=== PATIENT | male | born 1935 | race Caucasian/White ===

== ENCOUNTER 2021-06-21 18:16 | Inpatient (IN) | payer MEDICARE, OTHER ==
[~2021-06-21] VITALS: Ht 175.3 cm; Wt 75.0 kg
[~2021-06-21 18:16] MED LIST: ASPI-83 PO; BETA1TAB12 PO; CLOP75TA34 PO; FLUO20CA39 PO; HYDR12.522 PO; OLME20TA15 PO; OMEG1CAP13 PO; SIMV-42 PO; THY60T PO; VITA400T8 PO
[2021-06-21 19:29] LABS: BASOPHILS # (AUTO) 0.1 X10'3 (0-0.2); BASOPHILS % (AUTO) 0.7 % (0-1); EOSINOPHILS # (AUTO) 0.4 X10'3 (0-0.9); HEMATOCRIT 38.3 % (42.0-52.0); HEMOGLOBIN 12.7 g/dl (14.0-17.9); LYMPHOCYTES # (AUTO) 1.4 X10'3 (1.1-4.8); LYMPHOCYTES % (AUTO) 13.6 % (21-51); MEAN CORPUSCULAR HGB CONC 33.3 g/dL (33.0-36.5); MEAN CORPUSCULAR VOLUME 90.1 FL (78-98); MEAN PLATELET VOLUME 7.9 FL (7.4-10.4); MONOCYTES # (AUTO) 0.9 X10'3 (0-0.9); MONOCYTES % (AUTO) 8.7 % (2-12); NEUTROPHILS # (AUTO) 7.3 X10'3 (1.8-7.7); PLATELET COUNT 223 X10'3 (140-440); RED BLOOD COUNT 4.25 X10'6 (4.70-6.10); RED CELL DISTRIBUTION WIDTH 14.3 % (11.5-14.5)
[2021-06-21 19:40] LABS: ALANINE AMINOTRANSFERASE 23 U/L (12-78); ALBUMIN 3.6 G/DL (3.4-5.0); ALKALINE PHOSPHATASE 52 IU/L (46-116); ANION GAP 10 (8-16); ASPARTATE AMINO TRANSFERASE 22 U/L (10-37); BILIRUBIN,TOTAL 0.2 MG/DL (0.1-1.0); BLOOD UREA NITROGEN 20 MG/DL (7-18); BUN/CREATININE RATIO 23.5 (5.4-32.0); CALCIUM 9.8 MG/DL (8.5-10.1); CHLORIDE 104 MMOL/L (99-107); CREATININE 0.85 MG/DL (0.60-1.10); GLUCOSE 125 MG/DL (70-104); SODIUM 140 MMOL/L (135-145); TOTAL CARBON DIOXIDE 25.7 MMOL/L (24-32); TOTAL PROTEIN 7.1 G/DL (6.4-8.2); eGFR 85 ML/MIN
[2021-06-21] MEDS ORDERED: morphine 2 MG/ML inj. syringe IV PRN (21:45)
[2021-06-21] MEDS ORDERED: potassium Cl 20 mEq SR tablet PO PRN ×2 (21:45)
[2021-06-21] MEDS ORDERED: metoprolol tartrate 1mg/ml inj IV PRN (21:45)
[2021-06-21] MEDS ORDERED: HYDROcodone/acetaminophen 5mg/325mg tablet PO PRN (21:45)
[2021-06-21] MEDS ORDERED: magnesium Cl slow-release 64mg tablet PO PRN (21:45)
[2021-06-21] MEDS ORDERED: potassium CL 10mEq/100ml bag 100 ML IV PRN (21:45)
[2021-06-21] MEDS ORDERED: magnesium 2GM in 50ml NS 50 ML IV PRN (21:45)
[2021-06-21] MEDS ORDERED: aminophylline 250mg/10ml inj. IV PRN (21:45)
[2021-06-21] MEDS ORDERED: regadenoson 0.4mg/5ml syringe IV PRN (21:45)
[2021-06-21] MEDS ORDERED: magnesium 4gm in 100ml NS 100 ML IV PRN (21:45)
[2021-06-21] MEDS ORDERED: acetaminophen 325mg tablet PO PRN ×2 (21:45)
[2021-06-21] MEDS ORDERED: ondansetron/PF 4mg/2ml inj IV PRN (21:45)
[2021-06-21] MEDS ORDERED: DONE10TA44 PO (21:59)
[2021-06-21] MEDS ORDERED: AMLO5TAB16 PO (21:59)
[2021-06-21] MEDS ORDERED: METO-395 PO (21:59)
[2021-06-21] MEDS ORDERED: METF-1203 PO (21:59)
[2021-06-21] MEDS ORDERED: LEVO50TA8 PO (21:59)
[2021-06-21] MEDS ORDERED: PANT20TA18 PO (21:59)
[2021-06-21] MEDS ORDERED: ROSU40TA22 PO (21:59)
[2021-06-22] VITALS (12 sets, daily range): BP systolic 128–188; BP diastolic 54–84
[2021-06-22] MEDS: normal saline 1000ml 1,000 ML IV SCH ×3 (01:04→18:46)
[2021-06-22 01:49] LABS: BASOPHILS # (AUTO) 0.1 X10'3 (0-0.2); BASOPHILS % (AUTO) 1.1 % (0-1); EOSINOPHILS # (AUTO) 0.4 X10'3 (0-0.9); EOSINOPHILS % (AUTO) 4.7 % (0-6); HEMATOCRIT 35.2 % (42.0-52.0); HEMOGLOBIN 11.7 g/dl (14.0-17.9); LYMPHOCYTES # (AUTO) 1.7 X10'3 (1.1-4.8); LYMPHOCYTES % (AUTO) 19.6 % (21-51); MEAN CORPUSCULAR HEMOGLOBIN 29.5 PG (27.0-31.0); MEAN CORPUSCULAR HGB CONC 33.3 g/dL (33.0-36.5); MEAN CORPUSCULAR VOLUME 88.6 FL (78-98); MEAN PLATELET VOLUME 7.6 FL (7.4-10.4); MONOCYTES # (AUTO) 0.7 X10'3 (0-0.9); MONOCYTES % (AUTO) 8.5 % (2-12); NEUTROPHILS # (AUTO) 5.8 X10'3 (1.8-7.7); NEUTROPHILS % (AUTO) 66.1 % (42-75); PLATELET COUNT 215 X10'3 (140-440); RED BLOOD COUNT 3.97 X10'6 (4.70-6.10); RED CELL DISTRIBUTION WIDTH 14.3 % (11.5-14.5); WHITE BLOOD COUNT 8.8 X10'3 (4.5-11.0)
[2021-06-22 02:14] LABS: ALANINE AMINOTRANSFERASE 24 U/L (12-78); ALBUMIN 3.3 G/DL (3.4-5.0); ALBUMIN/GLOBULIN RATIO 1.3 (1.1-1.5); ALKALINE PHOSPHATASE 48 IU/L (46-116); ANION GAP 10 (8-16); ASPARTATE AMINO TRANSFERASE 19 U/L (10-37); BILIRUBIN,TOTAL 0.2 MG/DL (0.1-1.0); BLOOD UREA NITROGEN 19 MG/DL (7-18); BUN/CREATININE RATIO 25.7 (5.4-32.0); CALCIUM 9.4 MG/DL (8.5-10.1); CHLORIDE 106 MMOL/L (99-107); CHOL/HDL RATIO 2.1 (0.00-4.99); CHOLESTEROL 113 MG/DL (0-200); CREATININE 0.74 MG/DL (0.60-1.10); GLUCOSE 131 MG/DL (70-104); HDL CHOLESTEROL 54 MG/DL (35-60); LDL CHOLESTEROL 46 MG/DL (50-100); POTASSIUM 3.8 MMOL/L (3.5-5.1); SODIUM 141 MMOL/L (135-145); TOTAL CARBON DIOXIDE 25.2 MMOL/L (24-32); TOTAL PROTEIN 5.9 G/DL (6.4-8.2); TRIGLYCERIDES 73 MG/DL (20-135); eGFR > 90 ML/MIN
--- NOTE | 2021-06-22 02:30 | NUR ---
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 No other issues noted. Doctor notified, no new orders at this time, but stated to do a repeat EKG if noticed again.
[2021-06-22] MEDS: heparin, porcine 5000 units/ml vial SQ SCH ×2 (08:28→20:44)
[2021-06-22] MEDS: K and/or MAG REPLACEMENT MC SCH ×2 (08:29→19:41)
[2021-06-22] MEDS: nitroGLYCERIN 0.4mg SUBLingual tab SL PRN ×2 (08:54→11:43)
--- NOTE | 2021-06-22 08:54 | NUR ---
PT REPORTS ONSET OF CHEST PAIN AFTER COMPLETION OF ECHO. PAIN LOCATED LEFT CHEST, RADIATES DOWN TO ABD. DENIES NAUSEA/ NO DIAPHORESIS. 1 DOSE NITRO ADMINISTERED. PAIN 5/10
--- NOTE | 2021-06-22 09:09 | NUR ---
PT REPORTS 0/10 CP
--- NOTE | 2021-06-22 12:30 | NUR ---
PT ADMITTED TO [facility] RM[facility][id number], TRANSFERRING FROM ER TO [facility] VIA STRETCHER. 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 PT LEFT HEARING AID AT THE HOME.TELEMETRY-NSR 80. IVF NS@70CC/HR. SKIN WARM AND DRY, BILATERAL GROIN SKIN CUTS IN THE FOLDS-RED NONDRAINING NOTED. BP 165/102, PT ARRIVED TO NOW LEAVING TO [facility] 2ND PART. Addendum: 06/22/21 at 1855 by Dannielle Owens RN pt returned from [employer] BP 184/85, PRN medication Lopressor 10mg IV given as ordered. BP decreased to 126/65. will continue to monitor patient status.
[2021-06-22 14:23] LABS: HEMOGLOBIN A1C 8.1 % (4.5-6.2)
[2021-06-22] MEDS ORDERED: HYDROchlorothiazide 25mg tablet PO ONE (14:40)
[2021-06-22] MEDS ORDERED: heparin 10,000 units/1 ML INJ IV ONE (18:05)
[2021-06-22] MEDS ORDERED: heparin 25,000 UNIT/250ml bag 250 ML IV SCH (18:05)
[2021-06-22] MEDS ORDERED: heparin 10,000 units/1 ML INJ IV PRN (18:05)
[2021-06-22] MEDS ORDERED: dextrose 50%-water 50ml dispensing syringe IV PRN ×2 (18:25)
[2021-06-22] MEDS ORDERED: glucagon, human recombinant 1mg kit SUBCUT PRN (18:25)
[2021-06-22] MEDS ORDERED: DEXTROSE 15 GM of carb/4 tabs (each vial/BOTTLE has 4 tablets) PO PRN ×2 (18:25)
[2021-06-22] MEDS ORDERED: lisinopril 10 MG tablet PO ONE (18:25)
[2021-06-22] MEDS ORDERED: insulin Lispro (HumaLOG) vial - multi-dose SQ SCH (18:25)
[2021-06-22] MEDS ORDERED: MESSAGE TO PHARMACY PO ONE (18:25)
--- NOTE | 2021-06-22 19:15 | NUR ---
Patient in room MED 308. I have received report from OSMANI RN and had the opportunity to ask questions and assume patient care.
[2021-06-22] MEDS ORDERED: donepezil 5mg tablet PO SCH (21:00)
[2021-06-22] MEDS ORDERED: insulin glargine (Lantus) pen - multi-dose SQ SCH (21:00)
[2021-06-23 02:00] VITALS: BP 123/57
[2021-06-23 05:18] LABS: BASOPHILS % (AUTO) 0.5 % (0-1); EOSINOPHILS # (AUTO) 0.4 X10'3 (0-0.9); EOSINOPHILS % (AUTO) 4.6 % (0-6); HEMATOCRIT 40.8 % (42.0-52.0); LYMPHOCYTES # (AUTO) 1.5 X10'3 (1.1-4.8); LYMPHOCYTES % (AUTO) 17.7 % (21-51); MEAN CORPUSCULAR HEMOGLOBIN 30.6 PG (27.0-31.0); MEAN CORPUSCULAR HGB CONC 34.3 g/dL (33.0-36.5); MEAN CORPUSCULAR VOLUME 89.2 FL (78-98); MEAN PLATELET VOLUME 7.7 FL (7.4-10.4); MONOCYTES # (AUTO) 0.8 X10'3 (0-0.9); MONOCYTES % (AUTO) 9.4 % (2-12); NEUTROPHILS # (AUTO) 5.8 X10'3 (1.8-7.7); NEUTROPHILS % (AUTO) 67.8 % (42-75); PLATELET COUNT 222 X10'3 (140-440); RED BLOOD COUNT 4.57 X10'6 (4.70-6.10); RED CELL DISTRIBUTION WIDTH 14.4 % (11.5-14.5); WHITE BLOOD COUNT 8.5 X10'3 (4.5-11.0)
[2021-06-23 05:43] LABS: ALANINE AMINOTRANSFERASE 25 U/L (12-78); ALBUMIN 3.5 G/DL (3.4-5.0); ALBUMIN/GLOBULIN RATIO 1.1 (1.1-1.5); ALKALINE PHOSPHATASE 55 IU/L (46-116); ANION GAP 12 (8-16); ASPARTATE AMINO TRANSFERASE 23 U/L (10-37); BILIRUBIN,TOTAL 0.4 MG/DL (0.1-1.0); BLOOD UREA NITROGEN 16 MG/DL (7-18); BUN/CREATININE RATIO 19.8 (5.4-32.0); CALCIUM 10.1 MG/DL (8.5-10.1); CHLORIDE 104 MMOL/L (99-107); CREATININE 0.81 MG/DL (0.60-1.10); GLUCOSE 129 MG/DL (70-104); SODIUM 141 MMOL/L (135-145); TOTAL CARBON DIOXIDE 24.9 MMOL/L (24-32); TOTAL PROTEIN 6.6 G/DL (6.4-8.2); eGFR 90 ML/MIN
--- NOTE | 2021-06-23 06:17 | NUR ---
Problems reprioritized. Patient report given, questions answered & plan of care reviewed with VIMAL HORNER.
[2021-06-23] MEDS ORDERED: pantoprazole 40mg Tablet.DR PO SCH (07:30)
[2021-06-23] MEDS ORDERED: amLODIPine 5mg tablet PO SCH (08:00)
[2021-06-23] MEDS ORDERED: atorvastatin 20mg tablet PO SCH (08:00)
[2021-06-23] MEDS ORDERED: clopidogrel 75mg tablet PO SCH (08:00)
[2021-06-23] MEDS ORDERED: metoprolol succinate 25mg (24-HOUR) SR. Tablet PO SCH (08:00)
[2021-06-23] MEDS ORDERED: lisinopril 10 MG tablet PO SCH (08:00)
[2021-06-23] MEDS ORDERED: levoTHYROXINE 25mcg tablet PO SCH (08:00)
[2021-06-23] MEDS: K and/or MAG REPLACEMENT MC SCH (08:00)
[2021-06-23] MEDS: heparin, porcine 5000 units/ml vial SQ SCH (09:07)
[2021-06-23 09:10] VITALS: BP_SYST 123
[2021-06-23] MEDS ORDERED: NITR0.4T51 SL (09:44)
--- NOTE | 2021-06-23 10:51 | NUR ---
DM Consult: Pt admit DX systolic heart failure, unstable angina, HTN, hypothyroidism, and T2DM per DO note. Pt hx T2DM A1C 8.1% appropriate per ADA guidelines given age. PO 100% first heart healthy meal this admit placed on glycemic protocol w/ Lanstevie held last night per EMR. Will monitor for nutrition intervention needs this admit. Addendum: 06/23/21 at [address] Amended: Links added.
--- NOTE | 2021-06-23 13:05 | NUR ---
pt discharged per MD orders. Pt took all belongings and left via car to home with . Pt didn't have any further questions and will follow up with scheduled appointments. IV removed
[2021-06-23] MEDS ORDERED: LISI10TA27 PO (16:06)
== END 2021-06-23 13:18 | disposition home or self-care (01) | DRG 302 ==
LOC: ER 18:17 → ED HOLD 21:48 → MED 3N 06-22 12:26
PROVIDERS: ADMIT Internal Medicine; ATTEND Family Medicine
PROC: 4A02XM4 Measurement of Cardiac Total Activity, External Approach (ICD-10-PCS; principal; 2021-06-22)
PROC: 3E033HZ Introduction of Radioactive Substance into Peripheral Vein, Percutaneous Approach (ICD-10-PCS; 2021-06-22)
DX: I25.110 Atherosclerotic heart disease of native coronary artery with unstable angina pectoris (principal); I50.21 Acute systolic (congestive) heart failure; E03.9 Hypothyroidism, unspecified; E11.51 Type 2 diabetes mellitus with diabetic peripheral angiopathy without gangrene; E78.00 Pure hypercholesterolemia, unspecified; E78.5 Hyperlipidemia, unspecified; G47.30 Sleep apnea, unspecified; M54.9 Dorsalgia, unspecified; G89.29 Other chronic pain; I11.0 Hypertensive heart disease with heart failure; I35.1 Nonrheumatic aortic (valve) insufficiency; Z79.84 Long term (current) use of oral hypoglycemic drugs; Z95.5 Presence of coronary angioplasty implant and graft; Z79.899 Other long term (current) drug therapy; Z79.02 Long term (current) use of antithrombotics/antiplatelets
CPT/HCPCS: 36415; 71045; 78452; 80053; 80061; 82948; 83036; 83880; 84484; 85025; 93005; 93017; 93306; 97116; 97161; 99285; A9500; G0378; J1644; J1815; J2785; J3490; J7030

== ENCOUNTER 2021-07-18 11:50 | Day surgery (SDC) | payer MEDICARE, OTHER ==
[2021-07-13 15:38] LABS: BASOPHILS # (AUTO) 0.1 X10'3 (0-0.2); BASOPHILS % (AUTO) 0.8 % (0-1); EOSINOPHILS # (AUTO) 0.3 X10'3 (0-0.9); EOSINOPHILS % (AUTO) 4.8 % (0-6); HEMATOCRIT 40.5 % (42.0-52.0); HEMOGLOBIN 13.3 g/dl (14.0-17.9); LYMPHOCYTES # (AUTO) 1.2 X10'3 (1.1-4.8); LYMPHOCYTES % (AUTO) 16.7 % (21-51); MEAN CORPUSCULAR HEMOGLOBIN 29.3 PG (27.0-31.0); MEAN CORPUSCULAR HGB CONC 32.9 g/dL (33.0-36.5); MEAN PLATELET VOLUME 7.8 FL (7.4-10.4); MONOCYTES # (AUTO) 0.6 X10'3 (0-0.9); MONOCYTES % (AUTO) 8.2 % (2-12); NEUTROPHILS # (AUTO) 5.1 X10'3 (1.8-7.7); NEUTROPHILS % (AUTO) 69.5 % (42-75); PLATELET COUNT 250 X10'3 (140-440); RED BLOOD COUNT 4.55 X10'6 (4.70-6.10); RED CELL DISTRIBUTION WIDTH 14.8 % (11.5-14.5); WHITE BLOOD COUNT 7.3 X10'3 (4.5-11.0)
[2021-07-13 15:47] LABS: ALBUMIN 3.7 G/DL (3.4-5.0); ANION GAP 11 (8-16); APTT 25 SECONDS (22-32); BLOOD UREA NITROGEN 22 MG/DL (7-18); BUN/CREATININE RATIO 27.2 (5.4-32.0); CALCIUM 10.3 MG/DL (8.5-10.1); CHLORIDE 104 MMOL/L (99-107); CREATININE 0.81 MG/DL (0.60-1.10); GLUCOSE 164 MG/DL (70-104); POTASSIUM 4.3 MMOL/L (3.5-5.1); SODIUM 140 MMOL/L (135-145); TOTAL CARBON DIOXIDE 24.9 MMOL/L (24-32); eGFR 90 ML/MIN
[2021-07-18] VITALS (11 sets, daily range): BP systolic 94–150; BP diastolic 55–86
[~2021-07-18] VITALS: Ht 170.2 cm; Wt 78.0 kg
[~2021-07-18 11:50] MED LIST changes: -ASPI-83 PO; -BETA1TAB12 PO; +DONE10TA44 PO; -FLUO20CA39 PO; -HYDR12.522 PO; +LEVO50TA8 PO; +LISI10TA27 PO; +METF-1203 PO; +METO-395 PO; +NITR0.4T51 SL; -OLME20TA15 PO; -OMEG1CAP13 PO; +PANT20TA18 PO; +ROSU40TA22 PO; -SIMV-42 PO; -THY60T PO; -VITA400T8 PO
[2021-07-18] MEDS ORDERED: diphenhydrAMINE 25mg capsule PO PRN (12:10)
[2021-07-18] MEDS ORDERED: normal saline 1,000 ML IV SCH (12:10)
[2021-07-18] MEDS ORDERED: LORazepam 0.5 MG tablet PO PRN (12:10)
[2021-07-18] MEDS ORDERED: fentaNYL/PF 50MCG/1 ML 2ML syringe ONE (12:14)
[2021-07-18] MEDS ORDERED: midazolam 1 mg/ML 2ml injection ONE (12:14)
[2021-07-18] MEDS ORDERED: LIDOcaine 1% (10mg/ml)w/preservative inj. 20ml MDV ONE (12:14)
[2021-07-18] MEDS ORDERED: iohexol 350MG/ML 100ml bottle IV ONE ×2 (12:14→13:37)
[2021-07-18] MEDS ORDERED: nitroGLYCERIN-Tridil 50MG/D5W 250 ML IV ONE (12:18)
[2021-07-18] MEDS ORDERED: verapamil 2.5 mg/ml inj IV ONE (12:18)
[2021-07-18] MEDS ORDERED: heparin 1,000unit/ml 10ml vial 10 ML ONE (12:18)
[2021-07-18] MEDS ORDERED: LIDOcaine/PRILOcaine 5gm cream TP ONE (12:20)
[2021-07-18] MEDS ORDERED: ISOS60TA71 PO (12:25)
[2021-07-18] MEDS ORDERED: NITR0.4T48 (12:25)
[2021-07-18] MEDS ORDERED: AMLO5TAB16 (12:25)
[2021-07-18] MEDS ORDERED: FLUO-100 PO (12:27)
[2021-07-18] MEDS ORDERED: SENNA (12:36)
[2021-07-18] MEDS ORDERED: SAW PALMETTO (12:36)
[2021-07-18] MEDS ORDERED: STOOL SOFTENER (12:36)
[2021-07-18] MEDS ORDERED: ASPI-611 PO (12:36)
[2021-07-18] MEDS ORDERED: [UNRECOGNIZED DRUG - OTHER] (12:36)
[2021-07-18] MEDS ORDERED: MELOXICAM (12:36)
[2021-07-18] MEDS ORDERED: VITAMIN D3 (12:36)
[2021-07-18] MEDS ORDERED: ZINC (12:36)
[2021-07-18] MEDS ORDERED: [UNRECOGNIZED DRUG - OTHER] (12:36)
[2021-07-18] MEDS ORDERED: MONT10TA21 PO (12:36)
[2021-07-18] MEDS ORDERED: ALBUTEROL (12:36)
[2021-07-18] MEDS ORDERED: ACETAMINOPHEN (12:36)
[2021-07-18] MEDS ORDERED: OMEGA (12:36)
[2021-07-18] MEDS ORDERED: aspirin 325mg tablet ONE (13:43)
[2021-07-18] MEDS ORDERED: clopidogrel 300mg tablet ONE (13:43)
== END 2021-07-18 17:30 | disposition home or self-care (01) ==
LOC: SSTAY O 11:50
PROVIDERS: ATTEND Internal Medicine Interventional Cardiology
DX: R94.39 Abnormal result of other cardiovascular function study (principal); R07.89 Other chest pain; I25.10 Atherosclerotic heart disease of native coronary artery without angina pectoris; E11.9 Type 2 diabetes mellitus without complications; G47.33 Obstructive sleep apnea (adult) (pediatric); I10 Essential (primary) hypertension; I35.0 Nonrheumatic aortic (valve) stenosis; E03.9 Hypothyroidism, unspecified; E78.5 Hyperlipidemia, unspecified; N40.0 Benign prostatic hyperplasia without lower urinary tract symptoms; Z95.5 Presence of coronary angioplasty implant and graft; Z79.84 Long term (current) use of oral hypoglycemic drugs; Z79.82 Long term (current) use of aspirin; Z79.899 Other long term (current) drug therapy
CPT/HCPCS: 36415; 80048; 85025; 85610; 85730; 93005; 93458; 99152; 99153; C1725; C1751; C1769; C1874; C1894; C9600; J1644; J2250; J3010; J3490; J7030; Q0163; Q9967; A4620; A5120; A6258

== ENCOUNTER 2022-02-12 15:33 | Emergency (ER) | payer MEDICARE, OTHER ==
[~2022-02-12] VITALS: Ht 175.3 cm; Wt 67.0 kg
[~2022-02-12 15:33] MED LIST changes: +ACETAMINOPHEN; +ALBUTEROL; +AMLO5TAB16; +ASPI-611 PO; -DONE10TA44 PO; +FLUO-100 PO; +ISOS60TA71 PO; -LISI10TA27 PO; +MELOXICAM; -METO-395 PO; +MONT10TA21 PO; +NITR0.4T48; -NITR0.4T51 SL; +OMEGA; +SAW PALMETTO; +SENNA; +STOOL SOFTENER; +VITAMIN D3; +ZINC; +[UNRECOGNIZED DRUG - OTHER]; +[UNRECOGNIZED DRUG - OTHER]
[2022-02-12 16:05] LABS: BASOPHILS % (AUTO) 0.5 % (0-1); EOSINOPHILS # (AUTO) 0.3 X10'3 (0-0.9); EOSINOPHILS % (AUTO) 4.8 % (0-6); HEMATOCRIT 37.2 % (42.0-52.0); HEMOGLOBIN 12.5 g/dl (14.0-17.9); LYMPHOCYTES # (AUTO) 1.4 X10'3 (1.1-4.8); LYMPHOCYTES % (AUTO) 19.9 % (21-51); MEAN CORPUSCULAR HGB CONC 33.8 g/dL (33.0-36.5); MEAN PLATELET VOLUME 7.6 FL (7.4-10.4); MONOCYTES # (AUTO) 0.6 X10'3 (0-0.9); MONOCYTES % (AUTO) 8.4 % (2-12); NEUTROPHILS # (AUTO) 4.8 X10'3 (1.8-7.7); NEUTROPHILS % (AUTO) 66.4 % (42-75); PLATELET COUNT 218 X10'3 (140-440); RED BLOOD COUNT 4.18 X10'6 (4.70-6.10); RED CELL DISTRIBUTION WIDTH 15.1 % (11.5-14.5); WHITE BLOOD COUNT 7.2 X10'3 (4.5-11.0)
[2022-02-12 16:22] LABS: ALANINE AMINOTRANSFERASE 25 U/L (12-78); ALBUMIN 3.5 G/DL (3.4-5.0); ALBUMIN/GLOBULIN RATIO 1.1 (1.1-1.5); ALKALINE PHOSPHATASE 61 IU/L (46-116); ANION GAP 10 (8-16); ASPARTATE AMINO TRANSFERASE 18 U/L (10-37); BILIRUBIN,TOTAL 0.2 MG/DL (0.1-1.0); BLOOD UREA NITROGEN 18 MG/DL (7-18); BUN/CREATININE RATIO 20.2 (5.4-32.0); CALCIUM 10.4 MG/DL (8.5-10.1); CHLORIDE 105 MMOL/L (99-107); CREATININE 0.89 MG/DL (0.60-1.10); GLUCOSE 180 MG/DL (70-104); POTASSIUM 4.1 MMOL/L (3.5-5.1); SODIUM 141 MMOL/L (135-145); TOTAL CARBON DIOXIDE 26.4 MMOL/L (24-32); TOTAL PROTEIN 6.8 G/DL (6.4-8.2); eGFR 81 ML/MIN
[2022-02-12 16:29] LABS: MAGNESIUM 1.8 MG/DL (1.5-2.4)
[2022-02-12 18:56] VITALS: BP 166/70
== END 2022-02-12 19:00 | disposition home or self-care (01) ==
LOC: ER 15:34
DX: R07.89 Other chest pain (principal); I25.10 Atherosclerotic heart disease of native coronary artery without angina pectoris; E78.00 Pure hypercholesterolemia, unspecified; I10 Essential (primary) hypertension; E11.9 Type 2 diabetes mellitus without complications; Z95.0 Presence of cardiac pacemaker; Z98.890 Other specified postprocedural states; Z88.6 Allergy status to analgesic agent; Z88.8 Allergy status to other drugs, medicaments and biological substances; Z79.82 Long term (current) use of aspirin; Z79.899 Other long term (current) drug therapy
CPT/HCPCS: 36415; 71045; 80053; 83735; 83880; 84484; 85025; 93005; 99285

== ENCOUNTER 2022-04-06 13:14 | Day surgery (SDC) | payer MEDICARE, OTHER ==
[2022-04-04 10:11] LABS: BASOPHILS # (AUTO) 0.1 X10'3 (0-0.2); BASOPHILS % (AUTO) 0.8 % (0-1); EOSINOPHILS # (AUTO) 0.6 X10'3 (0-0.9); EOSINOPHILS % (AUTO) 9.9 % (0-6); HEMATOCRIT 39.2 % (42.0-52.0); HEMOGLOBIN 12.7 g/dl (14.0-17.9); LYMPHOCYTES # (AUTO) 1.3 X10'3 (1.1-4.8); LYMPHOCYTES % (AUTO) 19.8 % (21-51); MEAN CORPUSCULAR HEMOGLOBIN 29.8 PG (27.0-31.0); MEAN CORPUSCULAR HGB CONC 32.5 g/dL (33.0-36.5); MEAN CORPUSCULAR VOLUME 91.8 FL (78-98); MEAN PLATELET VOLUME 7.9 FL (7.4-10.4); MONOCYTES # (AUTO) 0.5 X10'3 (0-0.9); MONOCYTES % (AUTO) 7.9 % (2-12); NEUTROPHILS % (AUTO) 61.6 % (42-75); PLATELET COUNT 216 X10'3 (140-440); RED BLOOD COUNT 4.27 X10'6 (4.70-6.10); RED CELL DISTRIBUTION WIDTH 14.9 % (11.5-14.5); WHITE BLOOD COUNT 6.6 X10'3 (4.5-11.0)
[2022-04-04 10:26] LABS: APTT 23 SECONDS (22-32)
[2022-04-04 12:01] LABS: ALBUMIN 3.6 G/DL (3.4-5.0); ANION GAP 11 (8-16); BLOOD UREA NITROGEN 16 MG/DL (7-18); BUN/CREATININE RATIO 15.7 (5.4-32.0); CALCIUM 10.1 MG/DL (8.5-10.1); CHLORIDE 105 MMOL/L (99-107); CHOL/HDL RATIO 2.1 (0.00-4.99); CHOLESTEROL 108 MG/DL (0-200); CREATININE 1.02 MG/DL (0.60-1.10); GLUCOSE 137 MG/DL (70-104); HDL CHOLESTEROL 52 MG/DL (35-60); LDL CHOLESTEROL 45 MG/DL (50-100); POTASSIUM 4.4 MMOL/L (3.5-5.1); SODIUM 138 MMOL/L (135-145); TOTAL CARBON DIOXIDE 22.2 MMOL/L (24-32); TRIGLYCERIDES 93 MG/DL (20-135); eGFR 69 ML/MIN
[2022-04-06] VITALS (9 sets, daily range): BP systolic 142–188; BP diastolic 70–84
[2022-04-06] MEDS ORDERED: METO-395 PO (13:53)
[2022-04-06] MEDS ORDERED: LOSA25TA41 PO (13:53)
[2022-04-06] MEDS ORDERED: normal saline 1,000 ML IV SCH (14:00)
[2022-04-06] MEDS ORDERED: LORazepam 0.5 MG tablet PO PRN (14:00)
[2022-04-06] MEDS ORDERED: diphenhydrAMINE 25mg capsule PO PRN (14:00)
[2022-04-06] MEDS ORDERED: verapamil 2.5 mg/ml inj IV ONE (14:24)
[2022-04-06] MEDS ORDERED: nitroGLYCERIN-Tridil 50MG/D5W 250 ML IV ONE (14:24)
[2022-04-06] MEDS ORDERED: iohexol 350MG/ML 100ml bottle IV ONE ×2 (14:25→14:58)
[2022-04-06] MEDS ORDERED: midazolam 1 mg/ML 2ml injection ONE (14:25)
[2022-04-06] MEDS ORDERED: LIDOcaine 1% (10mg/ml) 2ml vial ONE (14:25)
[2022-04-06] MEDS ORDERED: fentaNYL/PF 50MCG/1 ML 2ML syringe ONE (14:25)
[2022-04-06] MEDS ORDERED: heparin 1,000unit/ml 10ml vial 10 ML ONE (14:25)
[2022-04-06] MEDS ORDERED: clopidogrel 300mg tablet ONE (15:11)
[2022-04-06] MEDS ORDERED: ondansetron/PF 4mg/2ml inj IV PRN (15:45)
[2022-04-06] MEDS ORDERED: proCHLORperazine 10 MG/2 ml inj IV PRN (15:45)
[2022-04-06] MEDS ORDERED: OXAZEpam 15mg capsule PO PRN (15:45)
[2022-04-06] MEDS ORDERED: nitroGLYCERIN 0.4mg SUBLingual tab SL PRN (15:45)
== END 2022-04-06 17:50 | disposition home or self-care (01) ==
LOC: SSTAY O 13:14
PROVIDERS: ATTEND Student in an Organized Health Care Education/Training Program
DX: I25.10 Atherosclerotic heart disease of native coronary artery without angina pectoris (principal); G47.33 Obstructive sleep apnea (adult) (pediatric); I11.0 Hypertensive heart disease with heart failure; I50.9 Heart failure, unspecified; I73.9 Peripheral vascular disease, unspecified; E03.9 Hypothyroidism, unspecified; Z79.01 Long term (current) use of anticoagulants; Z88.8 Allergy status to other drugs, medicaments and biological substances; Z98.890 Other specified postprocedural states; Z79.899 Other long term (current) drug therapy
CPT/HCPCS: 36415; 80048; 80061; 85025; 85610; 85730; 93005; 93458; 99152; 99153; C1725; C1751; C1769; C1874; C1894; C9600; J1644; J2250; J3010; J3490; J7030; Q0163; Q9967; A6258; A6449; C9602